=== PATIENT | male | born 1940 | race Caucasian/White ===

== ENCOUNTER 2017-12-15 00:06 | Inpatient (IN) | payer MEDICARE ==
[~2017-12-15] VITALS: Ht 175.3 cm; Wt 105.5 kg
[~2017-12-15 00:06] MED LIST: ALLO300T PO; AMLO10TA2 PO; ASPI-496 PO; ATOR20TA9 PO; BENA40TA3 PO; CHOL200024 PO; CLOP75TA52 PO; DILT120T3 PO; FINA5TAB4 PO; HYDR1TAB12 PO; HYDR25TA6 PO; MELO15TA24 PO; METF500T5 PO; METO-93 PO; METO25TA91 PO; METO50TA82; MULT-26 PO; NITR0.4T28 SL; SIMV40TA3 PO; VITA1TAB3 PO; VITA400C43 PO
[2017-12-15 00:48] LABS: BASOPHILS # (AUTO) 0.07 x10^3/uL (0-0.1); BASOPHILS % (AUTO) 1 % (0-1); EOSINOPHILS # (AUTO) 0.54 x10^3/uL (0-0.4); EOSINOPHILS % (AUTO) 5 % (1-7); LYMPHOCYTES # (AUTO) 1.71 x10^3/uL (1-3.4); LYMPHOCYTES % (AUTO) 16 % (22-44); MD NO; MEAN CORPUSCULAR HEMOGLOBIN 33.3 pg (27.5-34.5); MEAN CORPUSCULAR HGB CONC 34.4 g/dL (33.2-36.2); MEAN CORPUSCULAR VOLUME 96.8 fL (81-97); MEAN PLATELET VOLUME 8.3 fL (7.4-10.4); MONOCYTES # (AUTO) 0.94 x10^3/uL (0.2-0.8); MONOCYTES % (AUTO) 9 % (2-9); NEUTROPHILS # (AUTO) 7.55 x10^3/uL (1.8-6.8); NEUTROPHILS % (AUTO) 70 % (42-75); PLATELET COUNT 325 x10^3/uL (130-400); RED BLOOD COUNT 3.96 x10^6/uL (4.38-5.82); RED CELL DISTRIBUTION WIDTH 14.3 % (9.4-14.8)
[2017-12-15 01:00] LABS: ALANINE AMINOTRANSFERASE 39 U/L (12-78); ALBUMIN 2.9 g/dL (3.4-5.0); ANION GAP 9 mmol/L (5-15); CALCIUM 8.4 mg/dL (8.5-10.1); CHLORIDE 106 mmol/L (98-107); CREATININE 1.33 mg/dL (0.7-1.3)
[2017-12-15] MEDS ORDERED: SODIUM CHLORIDE FLUSH 10ML SYR IVF ONE (01:00)
[2017-12-15 01:04] LABS: ALKALINE PHOSPHATASE 168 U/L (45-117); BILIRUBIN,TOTAL 0.8 mg/dL (0.2-1.0); TOTAL PROTEIN 6.4 g/dL (6.4-8.2)
[2017-12-15 01:05] LABS: TROPONIN I 0.177 ng/mL (0.000-0.045)
[2017-12-15] MEDS ORDERED: ASPIRIN 325 MG TABLET ONE (01:24)
[2017-12-15] MEDS ORDERED: SODIUM CHLORIDE 0.9% 1,000ML IVBOLUS ONE (01:30)
[2017-12-15] MEDS ORDERED: ASPIRIN 325 MG TABLET PO ONE (01:30)
[2017-12-15] MEDS ORDERED: OMNIPAQUE 350 MG/ML, 100ML BOTTLE ONE (01:45)
[2017-12-15] MEDS ORDERED: VITA1CAP PO (02:36)
[2017-12-15] MEDS ORDERED: NIAC250C2 PO (02:36)
[2017-12-15] MEDS ORDERED: VITA400C43 PO (02:36)
[2017-12-15] MEDS ORDERED: CHOL200040 PO (02:36)
[2017-12-15] MEDS ORDERED: HYDR25TA6 PO (02:36)
[2017-12-15] MEDS ORDERED: ASPI-496 PO (02:53)
[2017-12-15] MEDS ORDERED: EZET10TA18 PO (02:53)
[2017-12-15 03:26] VITALS: BP 166/94
[2017-12-15] MEDS ORDERED: SODIUM CHLORIDE 0.9% 1,000 ML IV SCH ×2 (04:24→18:00)
[2017-12-15] MEDS ORDERED: NITROGLYCERIN 0.4 MG BOTTLE (25 TABS) SL PRN (04:30)
[2017-12-15] MEDS ORDERED: ONDANSETRON ODT 4 MG PO PRN (04:30)
[2017-12-15] MEDS ORDERED: GUAIFENESIN/DM 200-20MG, 10ML UDC PO PRN (04:30)
[2017-12-15] MEDS ORDERED: POLYETHYLENE GLYCOL 17 GM PACKET PO PRN (04:30)
[2017-12-15] MEDS ORDERED: morphine SULFATE 10 MG/ML, 1ML IVPush PRN (04:30)
[2017-12-15] MEDS ORDERED: ONDANSETRON 2MG/ML, 2ML IVPush PRN (04:30)
[2017-12-15] MEDS ORDERED: DOCUSATE 100 MG CAPSULE PO PRN (04:30)
[2017-12-15] MEDS ORDERED: ACETAMINOPHEN 325 MG TABLET PO PRN (04:30)
[2017-12-15] MEDS ORDERED: HYDR-3240 PO (04:56)
[2017-12-15] MEDS: ASPIRIN 325 MG TABLET EC PO SCH (05:18)
[2017-12-15] MEDS: HYDROcodone/APAP 5/325 TABLET PO PRN ×2 (05:18→12:59)
[2017-12-15 06:19] LABS: CHOLESTEROL, TOTAL 174 mg/dL (140-239)
[2017-12-15 06:23] LABS: CHOL/HDL RATIO 4.6; HDL CHOL % 22 % (26-37); HDL CHOLESTEROL (DIRECT) 38 mg/dL (40-60); LDL CHOLESTEROL,CALCULATED 101 mg/dL (54-169); LDL/HDL RATIO 2.7 (0.5-3.0); TRIGLYCERIDES 174 mg/dL (50-200); TROPONIN I 0.934 ng/mL (0.000-0.045); VLDL CHOLESTEROL 35 mg/dL (0-25)
[2017-12-15 07:12] VITALS: BP 147/77
[2017-12-15 07:37] VITALS: BP 148/77
[2017-12-15 07:45] VITALS: BP 157/85
[2017-12-15 07:51] LABS: MICROSCOPIC NOT IND
[2017-12-15 08:05] LABS: CULTURE INDICATED? NO
[2017-12-15 08:08] VITALS: BP 138/77
[2017-12-15] MEDS ORDERED: TEMPLATE NON-FORMULARY MED. (Amlodipine Besylate (Amlodipine Besylate**) 10 MG) PO SCH (09:00)
[2017-12-15] MEDS: CHOLECALCIFEROL 2000 UNIT PO SCH (09:00)
[2017-12-15] MEDS: TEMPLATE NON-FORMULARY MED. (Vitamin B Complex** 1 TAB) PO SCH (09:00)
[2017-12-15] MEDS: VITAMIN E ACETATE 400 UNIT PO SCH (09:00)
[2017-12-15] MEDS ORDERED: TEMPLATE NON-FORMULARY MED. (Benazepril Hcl** 40 MG) PO SCH (09:00)
[2017-12-15] MEDS: EZETIMIBE 10 MG TABLET PO SCH (09:23)
[2017-12-15] MEDS: METOPROLOL SUCCINATE 25 MG TAB.ER.24H PO SCH (09:23)
[2017-12-15] MEDS: NIACIN 250 MG CAPSULE.ER PO SCH (09:24)
[2017-12-15] MEDS: ALLOPURINOL 300 MG TABLET PO SCH (09:25)
[2017-12-15] MEDS: FINASTERIDE 5 MG TABLET PO SCH (09:25)
[2017-12-15] MEDS ORDERED: SODIUM CHLORIDE 0.45% 1,000 ML IV SCH (09:30)
[2017-12-15 10:09] LABS: HEMOGLOBIN A1C 5.8 % (4.2-6.3)
[2017-12-15] MEDS ORDERED: SODIUM CHLORIDE 0.9% 1,000 ML IV ONE (13:13)
[2017-12-15 14:12] VITALS: BP 138/71
[2017-12-15] MEDS ORDERED: MIDAZOLAM 1 MG/ML, 5ML ONE (14:44)
[2017-12-15] MEDS ORDERED: FENTANYL PF 100 MCG/2ML ONE ×3 (14:44→16:22)
[2017-12-15] MEDS ORDERED: VERAPAMIL 2.5 MG/ML, 2ML ONE (14:45)
[2017-12-15] MEDS ORDERED: LIDOCAINE-MPF 2%, 2ML ONE (14:45)
[2017-12-15] MEDS ORDERED: TICAGRELOR 90 MG TABLET ONE (14:45)
[2017-12-15] MEDS ORDERED: BIVALIRUDIN 250 MG ONE ×3 (14:45→17:49)
[2017-12-15] MEDS ORDERED: HEPARIN 1,000 UNITS/ML, 10ML ONE (14:45)
[2017-12-15] MEDS ORDERED: MIDAZOLAM 1 MG/ML, 2ML ONE ×2 (16:03→16:22)
[2017-12-15] MEDS ORDERED: DIPHENHYDRAMINE 50 MG/ML, 1ML ONE (16:24)
[2017-12-15] MEDS ORDERED: PROPOFOL 0 ML IV ONE (16:35)
[2017-12-15] MEDS ORDERED: PROPOFOL 10 MG/ML, 20ML ONE (16:39)
[2017-12-15] MEDS ORDERED: VECURONIUM 10 MG ONE (16:39)
[2017-12-15] MEDS: FENTANYL PF 100 MCG/2ML IVPush PRN ×3 (18:13→22:24)
[2017-12-15] MEDS: BIVALIRUDIN 250 MG in DEXTROSE 5% 50 ML IV SCH ×3 (18:17→20:36)
[2017-12-15] MEDS ORDERED: PROPOFOL 100 ML IV ONE (18:52)
[2017-12-15] MEDS: TICAGRELOR 90 MG TABLET PO SCH (21:00)
[2017-12-15] MEDS: BENAZEPRIL 20 MG TABLET PO SCH (21:00)
[2017-12-15] MEDS: SODIUM CHLORIDE 0.9% 1,000 ML IV SCH (21:32)
[2017-12-15] MEDS ORDERED: PROPOFOL 100 ML IV PRN (21:40)
[2017-12-15] MEDS ORDERED: SENNA/DOCUSATE TABLET NG PRN (22:00)
[2017-12-15] MEDS: INSULIN LISPRO 100 UNITS/ML, PEN SQ-INSULIN SCH (22:00)
[2017-12-15] MEDS ORDERED: LIDOCAINE-MPF 1%, 2ML ENDO PRN (22:00)
[2017-12-15] MEDS ORDERED: SENNOSIDES 8.8 MG/5 ML ORAL SOL NG PRN (22:00)
[2017-12-15] MEDS ORDERED: LACTULOSE 20 GM/30 ML UDC NG PRN (22:00)
[2017-12-15] MEDS ORDERED: PHARMACY MAY ADJ FOR RENAL FX MC SCH (22:00)
[2017-12-15] MEDS ORDERED: BISACODYL 10 MG SUPP PR PRN (22:00)
[2017-12-15] MEDS ORDERED: FENTANYL PF 100 MCG/2ML IVPush PRN (22:00)
[2017-12-15] MEDS: PROPOFOL 100 ML IV PRN (22:25)
[2017-12-15] MEDS: FAMOTIDINE 20 MG/2 ML IV SCH (22:30)
[2017-12-15] MEDS: ALBUTEROL/IPRATROPIUM 2.5MG/0.5MG, 3 ML INLINE SCH (22:49)
[2017-12-16] MEDS: FENTANYL PF 100 MCG/2ML IVPush PRN ×2 (02:28→06:10)
[2017-12-16] MEDS: PROPOFOL 100 ML IV PRN ×2 (02:28→06:25)
[2017-12-16] MEDS: ALBUTEROL/IPRATROPIUM 2.5MG/0.5MG, 3 ML INLINE SCH ×6 (02:58→21:34)
[2017-12-16 05:11] LABS: ALBUMIN 2.6 g/dL (3.4-5.0); ANION GAP 6 mmol/L (5-15); CALCIUM 7.8 mg/dL (8.5-10.1); CHLORIDE 110 mmol/L (98-107)
[2017-12-16 05:12] LABS: BASOPHILS # (AUTO) 0.05 x10^3/uL (0-0.1); BASOPHILS % (AUTO) 0 % (0-1); EOSINOPHILS # (AUTO) 0.31 x10^3/uL (0-0.4); EOSINOPHILS % (AUTO) 2 % (1-7); LYMPHOCYTES # (AUTO) 1.05 x10^3/uL (1-3.4); LYMPHOCYTES % (AUTO) 8 % (22-44); MD NO; MEAN CORPUSCULAR HEMOGLOBIN 32.7 pg (27.5-34.5); MEAN CORPUSCULAR HGB CONC 33.9 g/dL (33.2-36.2); MEAN CORPUSCULAR VOLUME 96.3 fL (81-97); MEAN PLATELET VOLUME 8.3 fL (7.4-10.4); MONOCYTES % (AUTO) 10 % (2-9); NEUTROPHILS # (AUTO) 10.58 x10^3/uL (1.8-6.8); NEUTROPHILS % (AUTO) 80 % (42-75); PLATELET COUNT 312 x10^3/uL (130-400); RED BLOOD COUNT 3.61 x10^6/uL (4.38-5.82); RED CELL DISTRIBUTION WIDTH 14.6 % (9.4-14.8)
[2017-12-16 05:14] LABS: ALANINE AMINOTRANSFERASE 32 U/L (12-78); ALKALINE PHOSPHATASE 142 U/L (45-117); BILIRUBIN,TOTAL 0.7 mg/dL (0.2-1.0); CREATININE 1.06 mg/dL (0.7-1.3); TOTAL PROTEIN 5.8 g/dL (6.4-8.2)
[2017-12-16] MEDS: VITAMIN E ACETATE 400 UNIT PO SCH (09:00)
[2017-12-16] MEDS: NIACIN 250 MG CAPSULE.ER PO SCH (09:00)
[2017-12-16] MEDS: ALLOPURINOL 300 MG TABLET PO SCH (09:00)
[2017-12-16] MEDS: CHOLECALCIFEROL 2000 UNIT PO SCH (09:00)
[2017-12-16] MEDS: TEMPLATE NON-FORMULARY MED. (Vitamin B Complex** 1 TAB) PO SCH (09:00)
[2017-12-16] MEDS: INSULIN LISPRO 100 UNITS/ML, PEN SQ-INSULIN SCH ×4 (09:40→21:00)
[2017-12-16] MEDS: ASPIRIN 81 MG TABLET EC PO SCH (09:44)
[2017-12-16] MEDS: FAMOTIDINE 20 MG/2 ML IV SCH ×2 (09:44→21:02)
[2017-12-16] MEDS: TICAGRELOR 90 MG TABLET PO SCH ×2 (09:45→21:02)
[2017-12-16] MEDS: EZETIMIBE 10 MG TABLET PO SCH (09:47)
[2017-12-16] MEDS: METOPROLOL SUCCINATE 25 MG TAB.ER.24H PO SCH (09:47)
[2017-12-16] MEDS: ASPIRIN 325 MG TABLET EC PO SCH (09:47)
[2017-12-16] MEDS: AMLODIPINE 5 MG TABLET PO SCH (09:47)
[2017-12-16] MEDS: BENAZEPRIL 20 MG TABLET PO SCH ×2 (09:49→21:00)
[2017-12-16] MEDS: SODIUM CHLORIDE 0.9% 1,000 ML IV SCH (14:03)
[2017-12-16] MEDS: HYDROcodone/APAP 5/325 TABLET PO PRN (21:08)
[2017-12-17] MEDS: SODIUM CHLORIDE 0.9% 1,000 ML IV SCH (00:10)
[2017-12-17] MEDS: HYDROcodone/APAP 5/325 TABLET PO PRN ×3 (01:25→09:17)
[2017-12-17 04:52] LABS: ALBUMIN 2.3 g/dL (3.4-5.0); ANION GAP 4 mmol/L (5-15); CALCIUM 8.1 mg/dL (8.5-10.1); CHLORIDE 113 mmol/L (98-107)
[2017-12-17 04:56] LABS: BASOPHILS # (AUTO) 0.06 x10^3/uL (0-0.1); BASOPHILS % (AUTO) 1 % (0-1); EOSINOPHILS # (AUTO) 0.57 x10^3/uL (0-0.4); EOSINOPHILS % (AUTO) 6 % (1-7); LYMPHOCYTES # (AUTO) 1.74 x10^3/uL (1-3.4); LYMPHOCYTES % (AUTO) 17 % (22-44); MD NO; MEAN CORPUSCULAR HEMOGLOBIN 33.3 pg (27.5-34.5); MEAN CORPUSCULAR HGB CONC 34.3 g/dL (33.2-36.2); MEAN PLATELET VOLUME 8.2 fL (7.4-10.4); MONOCYTES # (AUTO) 0.91 x10^3/uL (0.2-0.8); MONOCYTES % (AUTO) 9 % (2-9); NEUTROPHILS # (AUTO) 6.96 x10^3/uL (1.8-6.8); NEUTROPHILS % (AUTO) 68 % (42-75); PLATELET COUNT 300 x10^3/uL (130-400); RED BLOOD COUNT 3.19 x10^6/uL (4.38-5.82)
[2017-12-17 04:57] LABS: ALANINE AMINOTRANSFERASE 30 U/L (12-78); ALKALINE PHOSPHATASE 134 U/L (45-117); BILIRUBIN,TOTAL 0.9 mg/dL (0.2-1.0); TOTAL PROTEIN 5.2 g/dL (6.4-8.2)
[2017-12-17] MEDS: ASPIRIN 325 MG TABLET EC PO SCH (05:14)
[2017-12-17] MEDS ORDERED: NITR0.4T SL (08:37)
[2017-12-17] MEDS ORDERED: TICA90TA PO (08:37)
[2017-12-17] MEDS: AMLODIPINE 5 MG TABLET PO SCH (09:00)
[2017-12-17] MEDS: NIACIN 250 MG CAPSULE.ER PO SCH (09:00)
[2017-12-17] MEDS: TEMPLATE NON-FORMULARY MED. (Vitamin B Complex** 1 TAB) PO SCH (09:00)
[2017-12-17] MEDS: CHOLECALCIFEROL 2000 UNIT PO SCH (09:00)
[2017-12-17] MEDS: VITAMIN E ACETATE 400 UNIT PO SCH (09:00)
[2017-12-17] MEDS: BENAZEPRIL 20 MG TABLET PO SCH (09:14)
[2017-12-17] MEDS: ALLOPURINOL 300 MG TABLET PO SCH (09:14)
[2017-12-17] MEDS: METOPROLOL SUCCINATE 25 MG TAB.ER.24H PO SCH (09:14)
[2017-12-17] MEDS: ASPIRIN 81 MG TABLET EC PO SCH (09:14)
[2017-12-17] MEDS: EZETIMIBE 10 MG TABLET PO SCH (09:14)
[2017-12-17] MEDS: TICAGRELOR 90 MG TABLET PO SCH (09:15)
[2017-12-17] MEDS: FINASTERIDE 5 MG TABLET PO SCH (09:17)
[2017-12-17] MEDS: FAMOTIDINE 20 MG/2 ML IV SCH (09:18)
== END 2017-12-17 13:15 | disposition home or self-care (01) | DRG 246 ==
LOC: ED 02:00 → EDIP 02:12 → 5SO 02:54 → CCU 17:26
PROVIDERS: ADMIT Hospitalist; ATTEND Hospitalist
PROC: 5A1935Z Respiratory Ventilation, Less than 24 Consecutive Hours (ICD-10-PCS; 2017-12-15)
PROC: 0BH17EZ Insertion of Endotracheal Airway into Trachea, Via Natural or Artificial Opening (ICD-10-PCS; 2017-12-15)
PROC: 4A023N7 Measurement of Cardiac Sampling and Pressure, Left Heart, Percutaneous Approach (ICD-10-PCS; principal; 2017-12-16)
PROC: 027036Z Dilation of Coronary Artery, One Artery with Three Drug-eluting Intraluminal Devices, Percutaneous Approach (ICD-10-PCS; 2017-12-16)
PROC: B2111ZZ Fluoroscopy of Multiple Coronary Arteries using Low Osmolar Contrast (ICD-10-PCS; 2017-12-16)
PROC: B2151ZZ Fluoroscopy of Left Heart using Low Osmolar Contrast (ICD-10-PCS; 2017-12-16)
DX: T82.855A Stenosis of coronary artery stent, initial encounter (principal); I21.4 Non-ST elevation (NSTEMI) myocardial infarction; E43 Unspecified severe protein-calorie malnutrition; I25.42 Coronary artery dissection; J96.00 Acute respiratory failure, unspecified whether with hypoxia or hypercapnia; D68.69 Other thrombophilia; J98.11 Atelectasis; Z99.11 Dependence on respirator [ventilator] status; I12.9 Hypertensive chronic kidney disease with stage 1 through stage 4 chronic kidney disease, or unspecified chronic kidney disease; N18.2 Chronic kidney disease, stage 2 (mild); Z95.5 Presence of coronary angioplasty implant and graft; Z87.891 Personal history of nicotine dependence; Y83.1 Surgical operation with implant of artificial internal device as the cause of abnormal reaction of the patient, or of later complication, without mention of misadventure at the time of the procedure; Y92.89 Other specified places as the place of occurrence of the external cause; Z88.8 Allergy status to other drugs, medicaments and biological substances; Z68.34 Body mass index [BMI] 34.0-34.9, adult; E78.5 Hyperlipidemia, unspecified; I25.10 Atherosclerotic heart disease of native coronary artery without angina pectoris; I25.2 Old myocardial infarction; I73.9 Peripheral vascular disease, unspecified; J43.9 Emphysema, unspecified; M19.90 Unspecified osteoarthritis, unspecified site; R04.0 Epistaxis; Z79.82 Long term (current) use of aspirin; Z86.79 Personal history of other diseases of the circulatory system; Z96.651 Presence of right artificial knee joint
CPT/HCPCS: 36415; 36600; 71045; 71275; 80053; 80061; 81003; 82803; 82962; 83036; 83735; 84100; 84478; 84484; 85014; 85018; 85025; 87070; 87081; 87205; 93005; 93306; 93458; 94002; 94003; 94150; 94640; 96360; 99156; 99157; C1769; C1894; C9600; J0583; J1644; J2250; J2704; J3010; J3490; J7620; Q9967; C1725; C1874; C1887; J1200; J1815; J2270; J7030; S0028

== ENCOUNTER 2019-05-30 16:49 | Emergency (ER) | payer MEDICARE ==
[~2019-05-30] VITALS: Ht 175.3 cm; Wt 102.3 kg
[~2019-05-30 16:49] MED LIST changes: -AMLO10TA2 PO; +AMLO10TA8 PO; +ATOR20TA37 PO; -ATOR20TA9 PO; +CHLO25TA PO; +CHOL200040 PO; +EVOL140S2 INJ; +EZET10TA70 PO; +HYDR-3240 PO; -HYDR1TAB12 PO; +HYDR1TAB13 PO; +METF500T17 PO; -METF500T5 PO; +NIAC250C2 PO; +NITR0.4T41 SL; +SIMV40TA20 PO; -SIMV40TA3 PO; +TICA90TA PO; +VITA1CAP PO
[2019-05-30 19:19] LABS: BASOPHILS % (AUTO) 0 % (0-1); EOSINOPHILS # (AUTO) 0.06 x10^3/uL (0-0.4); EOSINOPHILS % (AUTO) 1 % (1-7); LYMPHOCYTES # (AUTO) 0.51 x10^3/uL (1-3.4); LYMPHOCYTES % (AUTO) 4 % (22-44); MD NO; MEAN CORPUSCULAR HEMOGLOBIN 32.4 pg (27.5-34.5); MEAN CORPUSCULAR HGB CONC 33.4 g/dL (33.2-36.2); MEAN CORPUSCULAR VOLUME 96.9 fL (81-97); MEAN PLATELET VOLUME 8.8 fL (7.4-10.4); MONOCYTES # (AUTO) 0.15 x10^3/uL (0.2-0.8); MONOCYTES % (AUTO) 1 % (2-9); NEUTROPHILS # (AUTO) 10.74 x10^3/uL (1.8-6.8); NEUTROPHILS % (AUTO) 94 % (42-75); PLATELET COUNT 175 x10^3/uL (130-400); RED BLOOD COUNT 5.04 x10^6/uL (4.38-5.82); RED CELL DISTRIBUTION WIDTH 14.3 % (9.4-14.8)
[2019-05-30 19:20] LABS: ALANINE AMINOTRANSFERASE 37 U/L (12-78); ALBUMIN 3.9 g/dL (3.4-5.0); ANION GAP 8 mmol/L (5-15); CHLORIDE 107 mmol/L (98-107); CREATININE 1.68 mg/dL (0.7-1.3)
[2019-05-30 19:24] LABS: ALKALINE PHOSPHATASE 115 U/L (45-117); TOTAL PROTEIN 7.7 g/dL (6.4-8.2); TROPONIN I < 0.015 ng/mL (0.000-0.045)
[2019-05-30] MEDS ORDERED: LABETALOL 5MG/ML, 20ML ONE (20:52)
[2019-05-30] MEDS ORDERED: LABETALOL 5MG/ML, 20ML IVPush ONE (21:00)
[2019-05-30 22:27] VITALS: BP 97/59
[2019-05-31] MEDS ORDERED: BENA40TA3 PO (13:35)
[2019-05-31] MEDS ORDERED: APIX5TAB PO (13:35)
[2019-06-03] MEDS ORDERED: Sulfameth./Trimethoprim Ds PO (10:46)
== END 2019-05-30 22:51 | disposition home or self-care (01) ==
LOC: ED 22:34
DX: M79.10 Myalgia, unspecified site (principal); R68.83 Chills (without fever); R53.83 Other fatigue; I10 Essential (primary) hypertension; I25.2 Old myocardial infarction; I48.91 Unspecified atrial fibrillation
CPT/HCPCS: 36415; 71045; 80053; 84484; 85025; 87040; 87077; 87186; 93005; 99284

== ENCOUNTER → 2020-07-08 | Outpatient (CLI) | payer MEDICARE ==
[~2020-07-08] MED LIST changes: +AMLO-211 PO; -AMLO10TA8 PO; +APIX5TAB PO; +HYDR-1067 PO; -HYDR-3240 PO; +NIAC250C17 PO; -NIAC250C2 PO; +Sulfameth./Trimethoprim Ds PO
== END | disposition home or self-care (01) ==
LOC: CFH 09:55
PROVIDERS: ATTEND Internal Medicine Cardiovascular Disease
DX: I08.8 Other rheumatic multiple valve diseases (principal); I71.4 Abdominal aortic aneurysm, without rupture; I11.9 Hypertensive heart disease without heart failure
CPT/HCPCS: 93306